=== PATIENT | female | born 1965 | race African-American/Black ===

== ENCOUNTER 2016-04-27 10:04 | Emergency (ER) | payer OTHER, SELFPAY ==
[2016-04-27] MEDS ORDERED: IBUPROFEN400 M1 PO (10:41)
[2016-04-27 11:26] LABS: LYMPH % 22.7 % (20-45); LYMPH ABSOLUTE COUNT 2.1 tho/cmm (0.8-4.5); MONO % 8.1 % (0-12); MONOCYTE ABSOLUTE COUNT 0.8 tho/cmm (0.0-1.2); NEUTROPHIL ABSOLUTE COUNT 6.4 tho/cmm (1.6-8.0); NEUTROPHILS % 68.6 % (40-80)
[2016-04-27 11:28] LABS: BASO % 0.1 % (0-2); EOS % 0.4 % (0-7); HCT-HEMATOCRIT 25.4 % (34.0-49.0); HGB-HEMOGLOBIN 7.9 gm/dl (12.0-15.5); IMMATURE GRANULOCYTES ABSOLUTE 0.01 tho/cmm (0-0.03); IMMATURE GRANULOCYTES PERCENT 0.1 % (0-0.3); MCH (MEAN CORPUSCULAR HGB) 20.2 pg (28.0-32.0); MCHC MEAN CORPUSCULAR HGB CONC 31.1 % (32.0-36.0); MCV (MEAN CELL VOLUME) 64.8 fl (82.0-96.0); MEAN PLATELET VOLUME 10.6 cmc (9.4-12.4); NEUTROPHIL-AUTOMATED 6.5 tho/cmm (1.6-8.0); PLATELET COUNT 238 tho/cmm (150-450); RED BLOOD COUNT 3.92 mil/cmm (4.00-5.20); RED CELL DISTRIBUTION WIDTH 18.5 % (12.4-16.4); WHITE BLOOD COUNT 9.5 tho/cmm (4.0-10.0)
[2016-05-13] MEDS ORDERED: IRON325 M2 PO (15:26)
== END 2016-04-27 13:52 ==
LOC: EDMED 10:04
PROVIDERS: Emergency Medicine
DX: N93.9 Abnormal uterine and vaginal bleeding, unspecified (principal); D25.9 Leiomyoma of uterus, unspecified; D64.9 Anemia, unspecified; I10 Essential (primary) hypertension

== ENCOUNTER 2016-05-18 09:20 | Day surgery (SDC) | payer OTHER, SELFPAY ==
[~2016-05-18 09:20] MED LIST: IBUPROFEN400 M1 PO; IRON325 M2 PO
[2016-05-18] MEDS ORDERED: MACROBID 100 M100 M1 PO (09:55)
[2016-05-19] MEDS ORDERED: PERCOCET 5-3251 EACH PO (09:46)
== END 2016-05-19 10:55 ==
LOC: WSU 09:20 → SHSC 09:21 → ORW 11:45 → PACU 13:30 → OBGF 15:20
PROC: 0UT94ZZ Resection of Uterus, Percutaneous Endoscopic Approach (ICD-10-PCS; principal; 2016-05-18)
PROC: 0UTC4ZZ Resection of Cervix, Percutaneous Endoscopic Approach (ICD-10-PCS; 2016-05-18)
PROC: 0UT74ZZ Resection of Bilateral Fallopian Tubes, Percutaneous Endoscopic Approach (ICD-10-PCS; 2016-05-18)
PROC: 8E0W4CZ Robotic Assisted Procedure of Trunk Region, Percutaneous Endoscopic Approach (ICD-10-PCS; 2016-05-18)
DX: D25.1 Intramural leiomyoma of uterus (principal); D25.2 Subserosal leiomyoma of uterus; N80.0 Endometriosis of uterus; D50.0 Iron deficiency anemia secondary to blood loss (chronic); I10 Essential (primary) hypertension; E66.01 Morbid (severe) obesity due to excess calories; Z68.34 Body mass index [BMI] 34.0-34.9, adult; Z79.899 Other long term (current) drug therapy; Z87.440 Personal history of urinary (tract) infections; Z82.49 Family history of ischemic heart disease and other diseases of the circulatory system; Z90.49 Acquired absence of other specified parts of digestive tract; Z98.890 Other specified postprocedural states
CPT/HCPCS: J0690; J1170; J3010; J7030